=== PATIENT | female | born 1985 | race Caucasian/White ===

== ENCOUNTER → 2017-07-10 | Outpatient (CLI) | payer BC ==
[~2017-07-10] MED LIST: FERR1TAB23; PRENTAB26 PO
== END | disposition home or self-care (01) ==
LOC: C.LABSPEC 16:10
PROVIDERS: ATTEND Obstetrics & Gynecology
DX: Z34.81 Encounter for supervision of other normal pregnancy, first trimester (principal)

== ENCOUNTER → 2017-07-18 | Outpatient (CLI) | payer BC | END | disposition home or self-care (01) | LOC: C.PAPS 10:08 | PROVIDERS: ATTEND Obstetrics & Gynecology | DX: Z12.4 Encounter for screening for malignant neoplasm of cervix (principal) ==

== ENCOUNTER → 2017-07-18 | Outpatient (CLI) | payer BC ==
[2017-07-18 14:43] LABS: BASO % 0.4 %; BASO ABS # 0.04 K/uL (0-0.2); EOS % 1.6 %; EOS ABS # 0.14 K/uL (0-0.5); HEMATOCRIT 34.4 % (37-47); HEMOGLOBIN 12.2 g/dL (12.0-16.0); IG# 0.01 K/uL (0.00-0.02); LYMPH % 20.4 %; LYMPH ABS # 1.83 K/uL (1.2-3.4); MEAN CORPUSCULAR HGB CONC 35.5 g/dl (32-36); MEAN PLATELET VOLUME 9.4 fL (7.4-10.4); MONO % 8.4 %; MONO ABS # 0.75 K/uL (0.11-0.59); NEUT % 69.1 %; NEUT ABS # 6.19 K/uL (1.4-6.5); PLATELET COUNT 212 K/uL (130-400); WHITE BLOOD COUNT 8.96 K/uL (4.8-10.8)
== END | disposition home or self-care (01) ==
LOC: C.LAB1850 12:47
PROVIDERS: ATTEND Obstetrics & Gynecology
DX: Z34.81 Encounter for supervision of other normal pregnancy, first trimester (principal)

== ENCOUNTER → 2017-07-20 | Outpatient (CLI) | payer BC ==
[2017-07-25 21:33] LABS: DENGUE FEVER IgG AB 0.11; DENGUE FEVER IgM AB 1.14
== END | disposition home or self-care (01) ==
LOC: C.LAB1850 12:05
PROVIDERS: ATTEND Obstetrics & Gynecology
DX: O26.91 Pregnancy related conditions, unspecified, first trimester (principal); Z20.828 Contact with and (suspected) exposure to other viral communicable diseases; Z3A.12 12 weeks gestation of pregnancy

== ENCOUNTER → 2018-01-03 | Outpatient (CLI) | payer BC | END | disposition home or self-care (01) | LOC: C.LABSPEC 12:16 | PROVIDERS: ATTEND Obstetrics & Gynecology | DX: Z34.83 Encounter for supervision of other normal pregnancy, third trimester (principal) ==

== ENCOUNTER 2019-09-30 07:50 | Inpatient (IN) ==
[2019-09-30] MEDS ORDERED: OXYTOCIN 30 UNITS/500 ML BAG IV PRN ×4 (08:14→15:17)
--- NOTE | 2019-09-30 08:22 | History & Physical Report ---
Date of Service September 30, 2019 Assessment & Plan (1) Prolonged , antepartum: pitocin induction. arom when indicated. epidural on demand. anticipate , efw 9-10 # History of Present Illness Chief Complaint: induction Primary Care Provider: NO PCP Patient is a 34yowf with iup at 41 weeks who presents to labor and delivery for postdates induction. uncomplicated. Noted contractions over night. no lof/vb. +fm. AMA labs--O-/ab-/ri/rprnr/hepb-/hiv-/gc/ct/gbs neg/ 16 week gtt nl/ failed 28 week gtt with nl 2 hr declined cf/sma/genetics. Allergies Allergy/AdvReac Type Severity Reaction Status Date / Time No Known Drug Allergies Allergy Verified 09/29/19 12:17 Home Medications Home Medications Medication Instructions Recorded Confirmed Type prenat.vits,carolin,jgv-jsrj-kprzw 1 tab PO DAILY 02/28/19 09/29/19 History psyllium PO 06/06/19 09/29/19 History ferrous sulfate 325 mg (65 mg 325 mg PO DAILY 07/30/19 09/29/19 History iron) tablet Patient History Medical History Abnormal biochemical finding on screening of mother screening for malformation using ultrasonics Migraine Surgical History S/P wisdom tooth extraction Family History Father Atrial fibrillation Mother Kidney stone Sister Kidney stone Grandfather (Maternal) Colorectal cancer Social History Preferred Language: Persian Communication Ability: Effective 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: No Beliefs That Will Affect Care: None marital status: marital status details: Juan Carlos Fajardo ([phone] Current Living Situation: Spouse and Family Current Living Situation Comment: lives with spouse, 3 children, no pets current occupational status: employed 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 Feels Safe at Home: Yes Smoking Status: Never smoker Second Hand Exposure: No ; Hx Alcohol Use: No (social events; not during ) Hx Substance Use: No OB History g1--01/16, , 10-8, 39 weeks g2--/16, , 9-11, 41 g3--/18, , 11-2, 41 weeks (pushed twice) 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
[2019-09-30 08:30] LABS: Hematocrit (blood only) 38.2 % (37-47); Hemoglobin 12.8 g/dL (12.0-16.0); Mean Corpuscular Hemoglobin 31.6 pg (25-34); Mean Corpuscular Volume 94.3 fL (80-100); Mean Platelet Volume 9.4 fL (7.4-10.4); Platelet Count 286 K/uL (130-400); RDW Coefficient of Variation 13.5 % (11.5-14.5); RDW Standard Deviation 46.2 fL (36.4-46.3); Red Blood Count 4.05 M/uL (4.2-5.4); White Blood Count 11.27 K/uL (4.8-10.8)
[2019-09-30 08:32] LABS: Mean Corpuscular Hgb Conc 33.5 g/dL (32-36)
[2019-09-30] MEDS: LACTATED RINGER'S 1,000 ML IV PRN ×2 (09:12→13:28)
--- NOTE | 2019-09-30 11:44 | Labor Progress Brief Note ---
Date of Service September 30, 2019 Subjective Getting very uncomfortable Assessment & Plan (1) Prolonged , antepartum: Labor progressing. Discussed that this is likely the time to get epidural. Or we can break water so things progress more quickly. fetus category one. At this point, patient having issues makinig a decision and crying. Therefore, can just see how things progress. Can proceed however she wishes. Physical Exam Constitutional: WD/WN, vitals as above Psychiatric: A+Ox3, euthymic affect Genitourinary: cx--5//-2 toco--q2min, pit at 1 efm--130s with mod variability, accels to 150s, no decels Results & Data Vital Signs (Past 12 Hours) Vital Signs Temp Pulse Resp BP 09/30/19 11:07 36.8 C 09/30/19 11:06 86 101/68 09/30/19 10:05 83 124/73 09/30/19 09:10 92 H 112/76 09/30/19 08:09 36.7 C 09/30/19 08:04 97 H 127/74 Coding Level of Care Code None Diagnoses Prolonged , antepartum O48.1
[2019-09-30] MEDS ORDERED: ePHEDrine sulfate 50 MG/ML AMP ONE (13:02)
[2019-09-30] MEDS ORDERED: BUPIVACAINE 0.25% 30 ML VIAL ONE (13:03)
[2019-09-30] MEDS ORDERED: fentaNYL citrate 100 MCG/2 ML VIAL ONE (13:03)
[2019-09-30] MEDS ORDERED: fentaNYL 2MCG/ML ROPIV 1.25MG/ML 100 ML BAG EPI ONE (13:04)
--- NOTE | 2019-09-30 13:20 | Anesthesiology Consultation ---
Date of Service September 30, 2019 Assessment & Plan Chart Review Chart Review: Acceptable Risk for Labor Epidural ASA ASA2 Proposed Anesthesia Anesthesia Type: Labor Epidural Risk / Benefits Reviewed With: PT / POA / Parent / Guardian, Accepts Plan and Informed Consent Obtained History Height/Weight Height: 5 ft 8 in Weight: 85.729 kg Allergies Allergy/AdvReac Type Severity Reaction Status Date / Time No Known Drug Allergies Allergy Verified 09/29/19 12:17 Medications Home Medications Medication Instructions Recorded Confirmed Last Taken prenat.vits,carolin,kwt-evps-bgbib 1 tab PO DAILY 02/28/19 09/29/19 Unknown psyllium PO 06/06/19 09/29/19 Unknown ferrous sulfate 325 mg (65 mg 325 mg PO DAILY 07/30/19 09/29/19 Unknown iron) tablet Active Medications Generic Name Dose Route Start Last Admin Trade Name Freq PRN Reason Stop Dose Admin Lactated Ringer's 1,000 mls @ 125 mls/hr 09/30/19 08:14 09/30/19 13:28 Lr IV 10/02/19 08:13 125 mls/hr .Q8H PRN Administration L&D Protocol Protocol Oxytocin 30 units in 500 mls @ 1 mls/hr 09/30/19 08:14 09/30/19 13:12 Pitocin IV 10/02/19 08:13 0.06 units/hr .Q24H PRN 1 mls/hr Labor Induction/Augmentation Titration Protocol 0.06 UNITS/HR NPO Date Last Intake of Fluids: 09/30/19 Time Last Intake of Fluids: 00:00 Date Last Intake of Solids: 09/30/19 Time Last Intake of Solids: 00:00 Past Medical History Medical History Abnormal biochemical finding on screening of mother screening for malformation using ultrasonics Migraine Exercise / Class Metabolic Activity II 4-5 Yardwork/Stairs/Walk up hill Past Family History Family History Father Atrial fibrillation Mother Kidney stone Sister Kidney stone Grandfather (Maternal) Colorectal cancer Past Surgical History Surgical History S/P wisdom tooth extraction Past Anesthesia History No Hx of Anesthesia Complications and No Family Hx of Anesthesia Complications History of PONV No Hx of PONV and No Hx of Motion Sickness Social History Smoking Status: Never smoker Hx Alcohol Use: No Hx Substance Use: No Review of Systems denies fever/cough/ colds/ chest pain/ SOB/ SONNY Constitutional: no fever and no chills Respiratory: no cough and no dyspnea denies SONNY Cardiovascular: no chest pain and no dyspnea on exertion Physical Exam Vital Signs Last Vital Signs Temp 36.8 C 09/30/19 11:07 Pulse 90 09/30/19 13:42 Resp 18 09/30/19 12:07 BP 105/62 09/30/19 13:42 Pulse Ox 97 09/30/19 13:40 ENMT Mouth: no TMJ abnormality and no dentition abnormality Thyromental Distance: > or= 3.5 Finger Breadths Mallampati Class: II Neck neck extension not limited Respiratory normal respiratory effort; no respiratory distress Auscultation: lungs clear to auscultation bilaterally Cardiovascular Rate/Rhythm: regular rate and regular rhythm Neurologic moves all extremities Psychiatric Orientation: alert and oriented x 3 Testing Laboratory Results 09/30/19 08:19
[2019-09-30] MEDS ORDERED: ePHEDrine sulfate 50 MG/ML AMP IV PRN (14:29)
[2019-09-30] MEDS ORDERED: DiphenhydrAMINE HCL 50 MG/ML VIAL IV PRN (14:29)
[2019-09-30] MEDS ORDERED: NALOXONE HCL 0.4 MG/1 ML VIAL/CARP IV PRN (14:29)
[2019-09-30] MEDS ORDERED: NALBUPHINE HCL INJ 10 MG/ML AMP IV PRN (14:29)
[2019-09-30] MEDS ORDERED: NALOXONE HCL 1 MG in SODIUM CHLORIDE 0.9% 1000ML 1,000 ML IV PRN (14:29)
[2019-09-30] MEDS ORDERED: fentaNYL 2MCG/ML ROPIV 1.25MG/ML 100 ML BAG EPI PRN (14:29)
[2019-09-30] MEDS ORDERED: OXYCODONE/ACETAMINOPHEN 5mg/325mg TAB PO PRN (14:54)
[2019-09-30] MEDS ORDERED: IBUPROFEN 600 MG TAB PO PRN (14:54)
[2019-09-30] MEDS ORDERED: ACETAMINOPHEN 325 MG TAB PO PRN (14:54)
--- NOTE | 2019-09-30 14:58 | Delivery Summary ---
Vaginal Delivery Summary Date of Service September 30, 2019 Pre-operative Diagnosis: at 41 weeks induction thick meconium Post-operative Diagnosis: same Procedure: epidural right labial laceration and repair EBL: 300cc Anesthesia: epidural Procedure: The patient pushed for 2 contractions to deliver a viable female in jonatan position. A nuchal cord x 1 was reduced and the rest of the was then delivered without difficulty. The baby was vigorous. The nose and mouth were bulb suctioned and the was placed in the maternal abdomen for drying and attention. Cord was clamped and cut at one minute of life. Cord blood and segment obtained. Placenta delivered spontaneous, intact with a three vessel cord. Cervix/sulci/rectum were intact. A small right labial laceration was repaired in the normal standard fashion. Hemostasis obtained with dilute pitocin and fundal massage. Apgars were 8/9. Mother and baby doing well at the end of the delivery.
[2019-09-30] MEDS ORDERED: DIPHTHERIA/TETANUS/PERTUSSIS 0.5 ML SYR/VIAL IM ONE (15:17)
[2019-09-30] MEDS ORDERED: HYDROCORTISONE ACETATE 25 MG SUPP PR PRN (15:17)
[2019-09-30] MEDS ORDERED: SUPERCREAM 0.870% 15 GM JAR EXT PRN (15:17)
[2019-09-30] MEDS ORDERED: BENZOCAINE 20% AER SPR 82.5 GM CAN EXT PRN (15:17)
--- NOTE | 2019-09-30 16:10 | Anesthesia Procedure Note ---
Date of Service September 30, 2019 Anesthesia Post Epidural Note Vital Signs Vital Signs: Temp Pulse Resp BP Pulse Ox 36.3 C L 74 18 105/65 83 L 09/30/19 14:51 09/30/19 16:08 09/30/19 15:36 09/30/19 16:08 09/30/19 14:40 Pain Intensity Abdomen: Pain Intensity: 8 Notes Mental Status: alert / awake / arousable Nausea / Vomiting: adequately controlled Pain: adequately controlled Airway Patency, RR, SpO2: stable & adequate BP & HR: stable & adequate Hydration State: stable & adequate Neuraxial Anesthesia: was administered and sensory block is resolving Anesthetic Complications: no major complications apparent and Pt Satisfied with anesthetic care Epidural: Removed without complications and With tip intact
[2019-09-30] MEDS: DOCUSATE SODIUM 100 MG CAP PO SCH (19:55)
--- NOTE | 2019-10-01 05:54 | Obstetrical Progress Note ---
Date of Service October 01, 2019 Assessment & Plan (1) Status post vaginal delivery: Doing well. May be rhogam candidate. Routine ppd1 care. Day #:: 1 Subjective Ambulation: ambulating normally Voiding: no voiding problems Passing Gas:: No Diet Tolerance:: regular diet Lochia:: Small Feeding Type:: breast feeding Physical Exam Constitutional WD/WN, vitals as above Cardiovascular Extremities: no calf tenderness and no edema Gastrointestinal (Abdomen) soft, nt, nd, ff/nt at u Psychiatric A+Ox3, euthymic affect Results & Data Vital Signs (Past 12 Hours) Vital Signs Temp Pulse Resp BP Pulse Ox 10/01/19 03:25 36.7 C 74 16 111/81 97 09/30/19 23:15 36.9 C 67 16 107/69 09/30/19 21:08 36.9 C 77 16 109/66 09/30/19 17:59 36.7 C 77 16 114/73
[2019-10-01 06:07] LABS: Hematocrit (blood only) 34.4 % (37-47); Hemoglobin 11.5 g/dL (12.0-16.0)
[2019-10-01] MEDS ORDERED: PRENATAL VITAMIN 1 TAB PO SCH (08:00)
[2019-10-01] MEDS: DOCUSATE SODIUM 100 MG CAP PO SCH (08:59)
--- NOTE | 2019-10-01 14:44 | Obstetrical Progress Note ---
Date of Service October 01, 2019 Assessment & Plan (1) Status post vaginal delivery: she did have her rhogam, breast feeding. wants d/c home. instructions reviewed. f/u 6wks pp check. Subjective pt desires d/c home, doing well. Physical Exam Constitutional: WD/WN, vitals as above Psychiatric: A+Ox3, euthymic affect Results & Data Vital Signs (Past 12 Hours) Vital Signs Temp Pulse Pulse Resp BP BP Pulse Ox 10/01/19 13:00 98.1 F 77 16 113/73 97 10/01/19 10:23 97.3 F L 79 16 105/72 97 10/01/19 08:00 97.3 F L 79 16 105/72 97 10/01/19 03:25 98.1 F 74 16 111/81 97 PG Care Time/CCT Total # of Minutes Spent Total Time Spent with Patient: Total time spent is greater than 50% in coordination of care (as documented) at patient's floor/unit and/or counseling patient: Coding Level of Care Code None Diagnoses Status post vaginal delivery
[2019-10-01] MEDS ORDERED: bisacodyL 5 MG TABEC PO SCH (20:00)
[2019-10-02] MEDS ORDERED: bisacodyL 10 MG SUPP PR PRN (09:00)
== END 2019-10-01 16:35 | disposition home or self-care (01) | DRG 807 ==
LOC: 4S1 07:50 → 4S2 17:45